=== PATIENT | female | born 1990 | race Caucasian/White ===

== ENCOUNTER 2017-03-29 13:19 | Emergency (ER) | payer MEDICAID ==
[~2017-03-29] VITALS: Wt 67.0 kg
[~2017-03-29 13:19] MED LIST: IBUP400T22 PO; PRENAT PO
[2017-03-29] MEDS ORDERED: IBUP400T22 PO (14:10)
[2017-03-29] MEDS ORDERED: AZIT250T94 PO (14:10)
--- NOTE | 2017-03-29 15:03 | ERD ---
ER Documentation Chief Complaint Date/Time DATE: 03/29/17 TIME: 15:01 Chief Complaint SORE THROAT X 3 DAYS HPI This is a 27-year-old female presenting to the emergency department with a chief complaint of sore throat, bilateral ear pain, headache, fevers, cough for the past 2 days. Patient states that she has not taken any medications today. She rates as moderate in severity. She denies any chest pain or shortness of breath. ROS All systems reviewed and are negative except as per history of present illness. Medications Home Meds Active Scripts Ibuprofen* (Ibuprofen*) 400 Mg Tablet, 400 MG PO Q6H Y for PAIN, #30 TAB Prov:DEXTER LE PA-C 03/29/17 Azithromycin* (Zithromax*) 250 Mg Tablet, 250 MG PO .ZPACK DIRECTED, #6 TAB TAKE 500 MG (2 TABS) THE FIRST DAY THEN 250 MG (1 TAB) DAYS 2-5 Prov:DEXTER LE PA-C 03/29/17 Ibuprofen* (Motrin*) 400 Mg Tab, 400 MG PO Q6, #30 TAB 0 Refills Prov:KASHMIR MAY PA-C 05/07/16 Reported Medications Multivit/Min/Fol Ac/Iron/Pren* ( S*) 1 Tab Tab, 1 TAB PO DAILY, TAB 06/23/15 Allergies Allergies: Coded Allergies: No Known Allergy (Unverified , 06/23/15) PMhx/Soc Medical and Surgical Hx: pt denies Medical Hx, pt denies Surgical Hx Hx Alcohol Use: No Hx Substance Use: No Hx Tobacco Use: No Physical Exam Vitals Vital Signs Date Time Temp Pulse Resp B/P Pulse Ox O2 Delivery O2 Flow Rate FiO2 03/29/17 13:35 98.0 84 18 118/71 99 Physical Exam GENERAL: well-developed/well-nourished, in no apparent distress, non-toxic appearing HEAD: NC/AT, no swelling noted in frontal or maxillary areas EARS: bilateral tympanic membrane is impacted with cerumen NARES: nares patent, rhinorrhea and congested THROAT: oropharynx erythematous without exudates, no tonsil enlargement, post nasal drip EYES: Conjunctiva normal NECK: Supple, no lymphadenopathy PULM: CTA bilaterally, no rales, rhonchi, or wheezing heard CV: Normal S1S2, RRR, good capillary refill GI: Soft, non-distended, normal bowel sounds, non-tender BACK: No midline tenderness, no masses EXT No clubbing, cyanosis, or edema NEURO: Alert and Orientated SKIN: Intact, normal turgor PSYCH: Normal mood and mentation Procedures/MDM This is a 27-year-old female presenting to the emergency department complaining of headache, sore throat, ear pain for the past 3 days which is likely due to viral upper respiratory infection. However on examination patient did have cerumen impaction both years therefore acute otitis media cannot be completely rule out. Patient was requesting antibiotics and I have discussed to her that this is likely viral. A prescription for a Zithromax and ibuprofen was provided. There was no evidence of pneumonia or strep pharyngitis. Patient is afebrile and suitable for discharge. Discussed return to the ER for any worsening symptoms. She understands and agrees with plan. Departure Diagnosis: Primary Impression: URI (upper respiratory infection) Condition: Stable Patient Instructions: Preventing Common Respiratory Infections, Uri, Viral, No Abx (Adult) Additional Instructions: Visite a luis cristina judge para un EXAMEN.Regrese a estas instalaciones si no se mejora blue esperbamos o blue le dijimos. Magdalena toda la medicina luis armando y blue se le indic. Regrese a estas instalaciones si no se mejora blue esperbamos o blue le dijimos. DEXTER LE PA-C Mar 29, 2017 15:03
== END 2017-03-29 15:02 | disposition home or self-care (01) ==
LOC: FTE 13:19
DX: J06.9 Acute upper respiratory infection, unspecified (principal)
CPT/HCPCS: 99283

== ENCOUNTER 2018-08-06 11:49 | Emergency (ER) | END 2018-08-06 13:16 | disposition home or self-care (01) ==